=== PATIENT | female | born 1940 | race Caucasian/White ===

== ENCOUNTER 2018-11-29 06:01 | Observation (INO) | payer OTHER ==
[~2018-11-29] VITALS: Ht 142.2 cm; Wt 65.9 kg
[2018-11-29 06:27] VITALS: BP 142/72
[2018-11-29 11:05] VITALS: BP 126/50
[2018-11-29 16:42] VITALS: BP 121/60
[2018-11-29 20:38] VITALS: BP 106/49
[2018-11-30 05:23] VITALS: BP 114/50
[2018-11-30 07:11] LABS: BASOPHIL % 0.1 % (0-2); PLATELET COUNT 272 x10^3mcL (130-400); RED CELL DISTRIBUTION WIDTH 12.7 % (11.5-14.5)
[2018-11-30 09:32] VITALS: BP 116/50
[2018-11-30 12:34] VITALS: BP 116/50
== END 2018-11-30 13:55 | disposition home or self-care (01) | DRG 513 ==
LOC: MU 06:01
PROVIDERS: ADMIT Obstetrics & Gynecology
PROC: 0JQC0ZZ Repair Pelvic Region Subcutaneous Tissue and Fascia, Open Approach (ICD-10-PCS; principal; 2018-11-29 07:30)
PROC: 0UT90ZZ Resection of Uterus, Open Approach (ICD-10-PCS; principal; 2018-11-29 07:30)
DX: N81.3 Complete uterovaginal prolapse (principal); D64.9 Anemia, unspecified; I10 Essential (primary) hypertension; N32.81 Overactive bladder; N39.3 Stress incontinence (female) (male)
CPT/HCPCS: G0378; J0330; J0690; J1170; J2405; J2710; J3010; J3490; J7120